=== PATIENT | male | born 1975 | race Two or more races ===

== ENCOUNTER 2017-10-13 19:00 | Emergency (ER) | payer MEDICAID ==
[2017-10-13] MEDS: ONDANSETRON 4 MG INJ IV ×2 (19:15→21:02)
[2017-10-13] MEDS: HYDROmorphONE 1 MG/5 ML IV SYRINGE IV (19:15)
[2017-10-13] MEDS: IOHEXOL 300MG/ML 150 ML BTL (19:20)
[2017-10-13] MEDS: SOD CHLORIDE 0.9% 100 ML (19:20)
[2017-10-13 19:42] LABS: ADD MAN DIFF? NO
[2017-10-13 19:45] LABS: BASOPHILS % 0.5 % (0.0-2.0); EOSINOPHILS # 0.1 10^3/ul (0.0-0.5); EOSINOPHILS % 1.1 % (0.0-7.0); HEMATOCRIT 49.8 % (42.0-52.0); HEMOGLOBIN 16.4 g/dl (14.0-18.0); LYMPHOCYTES # 2.9 10^3/ul (0.8-2.9); MEAN CORPUSCULAR HEMOGLOBIN 28.1 pg (29.0-33.0); MEAN CORPUSCULAR HGB CONC 32.9 g/dl (32.0-37.0); MEAN CORPUSCULAR VOLUME 85.3 fl (82.0-101.0); MONOCYTE # 0.5 10^3/ul (0.3-0.9); MONOCYTES % 6.2 % (0.0-11.0); NEUTROPHIL # 4.3 10^3/ul (1.6-7.5); NEUTROPHILS % 54.7 % (39.0-77.0); PLATELET COUNT 270 10^3/UL (140-415); RED BLOOD COUNT 5.84 10^6/ul (4.70-6.10); RED CELL DISTRIBUTION WIDTH 13.1 % (11.5-14.5)
[2017-10-13 19:45] LABS: WHITE BLOOD COUNT 7.9 10^3/ul (4.8-10.8)
[2017-10-13 20:06] LABS: ALANINE AMINOTRANSFERASE 26 IU/L (13-69); ALBUMIN 4.6 g/dl (3.3-4.9); ALBUMIN/GLOBULIN RATIO 1.27; ALKALINE PHOSPHATASE 66 IU/L (42-121); ANION GAP 16 (8-16); ASPARTATE AMINO TRANSFERASE 23 IU/L (15-46); BILIRUBIN,INDIRECT 0.9 mg/dl (0-1.1); BILIRUBIN,TOTAL 0.9 mg/dl (0.2-1.3); BLOOD UREA NITROGEN 18 mg/dl (7-20); CALCIUM 9.4 mg/dl (8.4-10.2); CARBON DIOXIDE 31 mmol/L (21-31); CHLORIDE 102 mmol/L (97-110); GLUCOSE 130 mg/dl (70-220); INR 1.02; PROTIME 13.5 Sec (11.9-14.9); PT RATIO 1.1; SODIUM 145 mmol/L (135-144); TOTAL PROTEIN 8.2 g/dl (6.1-8.1)
[2017-10-13 20:07] LABS: PARTIAL THROMBOPLASTIN TIME 28.9 Sec (25.0-35.0)
[2017-10-13 20:16] LABS: TROPONIN-I < 0.012 ng/ml (0.000-0.120)
[2017-10-13] MEDS: HYDROmorphONE 0.5 MG/0.5 ML SYG IV (21:02)
[2017-10-13] MEDS: SOD CHLORIDE 0.9% 1,000 ML IV (21:05)
[2017-10-13] MEDS: METOCLOPRAMIDE 10 MG INJ IV (21:34)
[2017-10-13] MEDS: KETOROLAC 30 MG INJ IV (21:35)
== END 2017-10-13 23:46 | disposition home or self-care (01) ==
LOC: E/R 23:46
DX: S29.9XXA Unspecified injury of thorax, initial encounter (principal); S39.81XA Other specified injuries of abdomen, initial encounter; J45.909 Unspecified asthma, uncomplicated; R07.89 Other chest pain; W17.89XA Other fall from one level to another, initial encounter; Y92.89 Other specified places as the place of occurrence of the external cause
CPT/HCPCS: 71250; 74177; 80053; 84484; 85025; 85610; 85730; 93005; 96374; 96375; 96376; 99285-25